=== PATIENT | female | born 1990 | race Caucasian/White ===

== ENCOUNTER 2017-05-31 12:07 | Emergency (ER) | payer BC, SELFPAY ==
[2017-05-31] MEDS ORDERED: Ibuprofen 800 MG TAB ONE (13:32)
== END 2017-05-31 13:40 | disposition home or self-care (01) ==
LOC: ERS 12:07
DX: J11.1 Influenza due to unidentified influenza virus with other respiratory manifestations (principal); F17.220 Nicotine dependence, chewing tobacco, uncomplicated; J45.909 Unspecified asthma, uncomplicated; J42 Unspecified chronic bronchitis; Z71.6 Tobacco abuse counseling; Z79.899 Other long term (current) drug therapy
CPT/HCPCS: 87081; 87430; 99406

== ENCOUNTER 2018-08-16 13:26 | Emergency (ER) | payer SELFPAY | END 2018-08-16 13:55 | disposition home or self-care (01) | LOC: ERS 13:26 | DX: K04.7 Periapical abscess without sinus (principal); J45.909 Unspecified asthma, uncomplicated; F17.220 Nicotine dependence, chewing tobacco, uncomplicated; Z79.51 Long term (current) use of inhaled steroids; Z79.899 Other long term (current) drug therapy | CPT/HCPCS: 99282 ==

== ENCOUNTER 2022-04-18 10:22 | Outpatient (CLI) | payer BC, OTHER | END 2022-04-18 10:23 | disposition home or self-care (01) | LOC: CTENTCT 10:22 | PROVIDERS: ATTEND Otolaryngology Plastic Surgery within the Head & Neck | DX: J34.2 Deviated nasal septum (principal) | CPT/HCPCS: 70486 ==

== ENCOUNTER 2025-06-30 06:04 | Inpatient (IN) | payer BC, OTHER ==
[2025-06-30] MEDS ORDERED: Ondansetron PF 4 MG/2 ML Vial ONE ×2 (07:39→16:16)
[2025-06-30 07:53] LABS: #Basophils 0.06 10x3/uL (0.0-0.2); #Eosinophils 0.13 10x3/uL (0.0-0.7); #Monocytes 0.70 10x3/uL (0.11-0.59); #Neutrophils 5.68 10x3/uL (1.40-6.50); %Basophils 0.8 % (0.0-1.0); %Eosinophils 1.7 % (0.0-10.0); %Lymphocytes 13.5 % (21.0-51.0); %Monocytes 9.2 % (0.0-10.0); %Neutrophils 74.5 % (42.0-75.0); Hematocrit 43.8 % (36.0-47.0); Hemoglobin 14.5 g/dL (12.0-16.0); Mean Corpuscular Hemoglobin 29.5 pg (27.0-31.0); Mean Corpuscular Volume 89.2 fL (78.0-98.0); Platelet Count 254 10x3/uL (130-400); Red Blood Cell (RBC) Count 4.91 mill/uL (4.20-5.40); White Blood Cell (WBC) Count 7.62 10x3/uL (4.8-10.8)
[2025-06-30 08:07] LABS: ALT (SGPT) 12 U/L (Less than 34); AST (SGOT) 22 U/L (11-34); Albumin 4.1 g/dL (3.1-4.5); Alkaline Phosphatase 67 U/L (40-110); Anion Gap 13 mmol/L (10-20); BUN (Urea Nitrogen) 8 mg/dL (7.0-18.7); Bilirubin, Total 0.5 mg/dL (0.3-1.2); Calc. Creatinine Clearance 0 mL/min (70-130); Calcium 8.9 mg/dL (7.8-10.44); Carbon Dioxide 21 mmol/L (22-29); Chloride 106 mmol/L (98-107); Globulin 3.1 g/dL (2.4-3.5); Glucose 92 mg/dL (70-105); Potassium 3.5 mmol/L (3.5-5.1); Sodium 136 mmol/L (136-145)
[2025-06-30] MEDS ORDERED: Ondansetron PF 4 MG/2 ML Vial IVP PRN (09:23)
[2025-06-30] MEDS ORDERED: hydrALAZINE 20 MG/ML VIAL SLOW IVP PRN (09:23)
[2025-06-30 10:15] VITALS: BMI 24.3
[2025-06-30] MEDS ORDERED: Ibuprofen 200 MG TAB ONE (11:32)
[2025-06-30] MEDS ORDERED: Acetaminophen 325 MG TAB ONE (11:33)
[2025-06-30] MEDS: Acetaminophen 325 MG TAB PO SCH (11:38)
[2025-06-30] MEDS: Ibuprofen 600 MG TAB PO SCH (11:39)
[2025-06-30] MEDS ORDERED: Vancomycin 1 GM/200 ML (FROZEN) BAG ONE (14:52)
[2025-06-30] MEDS ORDERED: fentaNYL PF 100 MCG/2 ML SYRINGE ONE (14:57)
[2025-06-30] MEDS ORDERED: PROPOFOL 40 ML ONE (14:58)
[2025-06-30] MEDS ORDERED: Lidocaine 1% PF 5 ML VIAL ONE (14:59)
[2025-06-30] MEDS: Methocarbamol 500 MG TAB PO SCH (16:30)
[2025-06-30] MEDS ORDERED: HYDROmorphone 0.5 MG/0.5 ML SYRINGE ONE (17:07)
[2025-06-30] MEDS: Famotidine/PF 20 mg/2ml Vial SLOW IVP SCH (20:57)
[2025-07-01] MEDS: Vancomycin 1 GM in Premix 1 BAG IVPB SCH (04:01)
[2025-07-01 04:59] LABS: #Basophils Less than 0.03 10x3/uL (0.0-0.2); #Eosinophils Less than 0.03 10x3/uL (0.0-0.7); #Monocytes 1.09 10x3/uL (0.11-0.59); #Neutrophils 10.49 10x3/uL (1.40-6.50); %Basophils 0.2 % (0.0-1.0); %Eosinophils 0.0 % (0.0-10.0); %Lymphocytes 6.7 % (21.0-51.0); %Monocytes 8.7 % (0.0-10.0); %Neutrophils 83.9 % (42.0-75.0); Hematocrit 40.3 % (36.0-47.0); Hemoglobin 13.0 g/dL (12.0-16.0); Mean Corpuscular Hemoglobin 29.7 pg (27.0-31.0); Mean Corpuscular Volume 92.2 fL (78.0-98.0); Platelet Count 243 10x3/uL (130-400); Red Blood Cell (RBC) Count 4.37 mill/uL (4.20-5.40); White Blood Cell (WBC) Count 12.50 10x3/uL (4.8-10.8)
[2025-07-01 05:22] LABS: Anion Gap 12 mmol/L (10-20); BUN (Urea Nitrogen) 8 mg/dL (7.0-18.7); Calc. Creatinine Clearance 100 mL/min (70-130); Calcium 8.6 mg/dL (7.8-10.44); Carbon Dioxide 22 mmol/L (22-29); Chloride 108 mmol/L (98-107); Glucose 104 mg/dL (70-105); Potassium 4.3 mmol/L (3.5-5.1); Sodium 138 mmol/L (136-145)
[2025-07-01 08:38] VITALS: BP 111/70; TEMP 98.1
[2025-07-01] MEDS: Enoxaparin 40 MG (0.4 mL) SYRINGE SC SCH (09:15)
== END 2025-07-01 16:28 | disposition home or self-care (01) | DRG 494 ==
LOC: ERS 06:04 → ERHOLD 09:26 → MSONC 13:07
PROVIDERS: ADMIT Surgery; ATTEND Surgery
PROC: 0QSG04Z Reposition Right Tibia with Internal Fixation Device, Open Approach (ICD-10-PCS; principal; 2025-06-30)
DX: S82.141A Displaced bicondylar fracture of right tibia, initial encounter for closed fracture (principal); J45.909 Unspecified asthma, uncomplicated; S82.831A Other fracture of upper and lower end of right fibula, initial encounter for closed fracture; F10.90 Alcohol use, unspecified, uncomplicated; F64.0 Transsexualism; Z88.1 Allergy status to other antibiotic agents; Z88.0 Allergy status to penicillin; F17.220 Nicotine dependence, chewing tobacco, uncomplicated; W17.89XA Other fall from one level to another, initial encounter
CPT/HCPCS: 80048; 80053; 85025; 96374; 96375; C1713; J0665; J1100; J1171; J1308; J1650; J2250; J2270; J2405; J2704; J3010; J3373; J7120